=== PATIENT | male | born 1955 | race Caucasian/White ===

== ENCOUNTER 2018-12-31 09:55 | Inpatient (IN) | payer OTHER ==
[~2018-12-31] VITALS: Ht 193 cm; Wt 115.0 kg
[~2018-12-31 09:55] MED LIST: ASCO10004 PO; CHOL200024 PO; FISH1CAP PO; HYDR25TA6 PO; LEVO100T PO; LISI-170 PO; MULT-516 PO
[2018-12-31] MEDS ORDERED: LACTATED RINGERS 1,000 ML IV SCH (10:12)
[2018-12-31] MEDS ORDERED: VANCOMYCIN PER PHARMACY MC ONE (10:12)
[2018-12-31] MEDS ORDERED: FENTANYL PF 250 MCG/5ML ONE (10:23)
[2018-12-31] MEDS ORDERED: MIDAZOLAM 1 MG/ML, 2ML ONE (10:23)
[2018-12-31 10:29] VITALS: BP 165/99
[2018-12-31] MEDS ORDERED: ACETAMINOPHEN 500 MG TABLET PO ONE (10:30)
[2018-12-31] MEDS ORDERED: GABAPENTIN 300 MG CAPSULE PO ONE (10:30)
[2018-12-31] MEDS ORDERED: KETOROLAC 60 MG/2 ML ONE (10:38)
[2018-12-31] MEDS ORDERED: SODIUM CHLORIDE 0.9% 50 ML ONE (10:38)
[2018-12-31] MEDS ORDERED: TRANEXAMIC ACID 100 MG/ML, 10ML ONE ×2 (10:38)
[2018-12-31] MEDS ORDERED: VANCOMYCIN 1,000 MG ONE (10:38)
[2018-12-31] MEDS ORDERED: ROPIvacaine/PF 0.5%, 30 ML ONE (10:38)
[2018-12-31] MEDS ORDERED: EPINEPHRINE 1 MG/ML, 1ML ONE (10:39)
[2018-12-31] MEDS ORDERED: VANCOMYCIN 2,000 MG in SODIUM CHLORIDE 0.9% 500 ML IV ONE (11:30)
[2018-12-31] MEDS ORDERED: NS + 20MEQ KCL 1,000 ML IV SCH (12:18)
[2018-12-31] MEDS ORDERED: HYDROcodone/APAP 5/325 TABLET PO PRN (12:30)
[2018-12-31] MEDS ORDERED: MAGNESIUM HYDROXIDE 8%, 30ML UDC PO PRN (12:30)
[2018-12-31] MEDS ORDERED: ACETAMINOPHEN 650 MG/20.3 ML UDC PO PRN (12:30)
[2018-12-31] MEDS ORDERED: ONDANSETRON 4 MG TABLET PO PRN (12:30)
[2018-12-31] MEDS ORDERED: DIPHENHYDRAMINE 50 MG CAPSULE PO PRN (12:30)
[2018-12-31] MEDS ORDERED: CEFAZOLIN PMX 2GM/50ML 50 ML IVPB SCH (12:30)
[2018-12-31] MEDS ORDERED: ONDANSETRON 2MG/ML, 2ML IV PRN ×2 (12:30→13:30)
[2018-12-31] MEDS ORDERED: HYDROmorphone 1 MG/ML, 1ML IV PRN (12:30)
[2018-12-31] MEDS ORDERED: BISACODYL 10 MG SUPP PR PRN (12:30)
[2018-12-31] MEDS ORDERED: OXYcodone IR 5MG TABLET PO PRN (12:30)
[2018-12-31] MEDS ORDERED: SCOPOLAMINE PATCH, 1.5MG PATCH.TD72 TD ONE (12:30)
[2018-12-31] MEDS ORDERED: ZOLPIDEM 5MG TABLET PO PRN (12:30)
[2018-12-31] MEDS ORDERED: SENNA/DOCUSATE TABLET PO PRN (12:30)
[2018-12-31] MEDS ORDERED: CEFAZOLIN 1,000 MG ONE ×2 (13:24)
[2018-12-31] MEDS ORDERED: DEXAMETHASONE 4 MG/ML, 5ML ONE (13:24)
[2018-12-31] MEDS ORDERED: ROCURONIUM 10MG/ML,5ML ONE (13:24)
[2018-12-31] MEDS ORDERED: PROPOFOL 10 MG/ML, 20ML ONE (13:24)
[2018-12-31] MEDS ORDERED: ONDANSETRON 2MG/ML, 2ML ONE (13:24)
[2018-12-31] MEDS ORDERED: GLYCOPYRROLATE 0.4 MG/2 ML, 2ML ONE (13:28)
[2018-12-31] MEDS ORDERED: NEOSTIGMINE 1 MG/ML, 10ML ONE (13:28)
[2018-12-31] MEDS ORDERED: FENTANYL PF 100 MCG/2ML IV PRN (13:30)
[2018-12-31] MEDS ORDERED: PROMETHAZINE 25 MG/ML, 1ML IV PRN (13:30)
[2018-12-31] MEDS ORDERED: HYDROmorphone 2 MG/ML, 1ML IVPush PRN (13:30)
[2018-12-31] MEDS ORDERED: LABETALOL 5 MG/ML SYRINGE IV PRN (13:30)
[2018-12-31] MEDS ORDERED: hydrALAzine 20 MG/ML, 1ML IV PRN (13:30)
[2018-12-31] MEDS ORDERED: MEPERIDINE/PF 25MG/0.5ML IVPush PRN (13:30)
[2018-12-31] MEDS ORDERED: DIAZEPAM 5 MG/ML, 2ML IVPush PRN (13:30)
[2018-12-31] MEDS ORDERED: OXYcodone 5 MG/5 ML ORAL.SOL UDC PO PRN (13:30)
[2018-12-31] MEDS ORDERED: OXYcodone 5 MG/5 ML ORAL.SOL UDC ONE (14:18)
[2018-12-31] MEDS ORDERED: ASPIRIN 81 MG TABLET EC PO SCH (18:00)
[2018-12-31] MEDS ORDERED: DOCUSATE 100 MG CAPSULE PO SCH (21:00)
[2019-01-01] MEDS ORDERED: DEXAMETHASONE 4 MG/ML, 1ML IVPush SCH (06:00)
[2019-01-01] MEDS ORDERED: LEVOTHYROXINE 100 MCG TABLET PO SCH (06:00)
[2019-01-01] MEDS ORDERED: LISINOPRIL 20 MG TABLET PO SCH (09:00)
[2019-01-01] MEDS ORDERED: HYDROCHLOROTHIAZIDE 25 MG TABLET PO SCH (09:00)
== END 2018-12-31 19:40 | disposition home or self-care (01) | DRG 468 ==
LOC: ORIP 09:55 → 4NOR 15:27
PROVIDERS: ADMIT Orthopaedic Surgery; ATTEND Orthopaedic Surgery
PROC: 3E0T3BZ Introduction of Anesthetic Agent into Peripheral Nerves and Plexi, Percutaneous Approach (ICD-10-PCS; 2018-12-31)
PROC: 0SWD0JC Revision of Synthetic Substitute in Left Knee Joint, Patellar Surface, Open Approach (ICD-10-PCS; principal; 2018-12-31 13:00)
DX: T84.84XA Pain due to internal orthopedic prosthetic devices, implants and grafts, initial encounter (principal); T84.093A Other mechanical complication of internal left knee prosthesis, initial encounter; Y83.8 Other surgical procedures as the cause of abnormal reaction of the patient, or of later complication, without mention of misadventure at the time of the procedure; Y92.89 Other specified places as the place of occurrence of the external cause; I10 Essential (primary) hypertension; E03.9 Hypothyroidism, unspecified
CPT/HCPCS: 36415; 86850; 86900; G0378; J0171; J0690; J1100; J1885; J2250; J2405; J2704; J2710; J2795; J3010; J3370; J7040; J7120